=== PATIENT | female | born 2000 | race Caucasian/White ===

== ENCOUNTER 2019-03-19 21:26 | Emergency (ER) | payer OTHER, SELFPAY ==
[2019-03-19 21:59] LABS: #Eosinphils 0.1 thou/uL (0.0-0.7); #Lymphocytes 1.5 thou/uL (1.20-3.40); #Monocytes 0.6 thou/uL (0.11-0.59); #Neutrophils 5.2 thou/uL (1.40-6.50); %Basophils 0.3 % (0.0-1.0); %Eosinophils 1.3 % (0.0-10.0); %Lymphocytes 20.4 % (21.0-51.0); %Monocytes 8.1 % (0.0-10.0); %Neutrophils 69.9 % (42.0-75.0); Hemoglobin 13.2 g/dL (12.0-16.0); Mean Corpuscular HGB CONC 33.9 g/dL (32.0-36.0); Mean Corpuscular Volume 88.6 fL (78.0-98.0); Mean Platelet Volume 7.4 fL (7.4-10.4); Platelet Count 188 thou/uL (130-400); RBC Distribution Width 11.7 % (11.5-14.5); White Blood Cell (WBC) Count 7.4 thou/uL (4.8-10.8)
[2019-03-19 22:20] LABS: ALT (SGPT) 24 U/L (8-55); AST (SGOT) 18 U/L (5-34); Albumin 3.6 g/dL (3.5-5.0); Alkaline Phosphatase 61 U/L (40-150); Anion Gap 11 mmol/L (10-20); BUN (Urea Nitrogen) 8 mg/dL (7.0-18.7); Bilirubin, Total 0.2 mg/dL (0.2-1.2); Calc. Creatinine Clearance 0 mL/min (70-130); Calcium 8.8 mg/dL (7.8-10.44); Carbon Dioxide 22 mmol/L (22-29); Chloride 105 mmol/L (98-107); Estimated GFR-MDRD Greater than 90; Globulin 2.7 g/dL (2.4-3.5); Glucose 81 mg/dL (70-105); Potassium 4.1 mmol/L (3.5-5.1); Protein, Total 6.3 g/dL (6.0-8.3); Sodium 134 mmol/L (136-145)
[2019-03-19 22:52] LABS: Bilirubin Negative (Negative); Blood, Urine Negative (Negative); Clarity Clear (Clear); Glucose, Urine (Dipstick) Normal (Negative); Leukocyte Negative Leu/uL (Negative); Nitrite Negative (Negative); Protein, Urine (Dipstick) Negative (Neg-Trace); Urobilinogen Normal mg/dL (Less than 2)
--- NOTE | 2019-03-20 00:20 | ULT ---
Exam: OB ultrasound HISTORY: 17 week patient. Abdominal pain. TECHNIQUE: Sagittal and transverse imaging of the gravid uterus performed FINDINGS: Single intrauterine gestation, breech presentation heart tones with a rate of 144 bpm Cervical length: 3.95-4.65 cm Posterior placenta. biometry: BPD: 4.05 cm, 18 weeks 2 days Head circumference: 15.06 cm, 18 weeks 1 day Abdominal circumference: 11.64 cm, 17 weeks 3 days Femur length 2.39 cm, 17 weeks 1 day Average age by sonography is 17 weeks 5 days. Estimated delivery date is 08/22/2019 Estimated weight: 194 g survey: Limited evaluation due to early intrauterine gestation. However, there does appear to b e possible left-sided hydronephrosis. IMPRESSION: 1. Single intrauterine gestation with heart tones. Average age by sonography is 17 weeks 5 days 2. Limited survey due to gestational age. However, the possibility of left-sided hydronephrosis is raised. Follow-up imaging in between 18-20 weeks gestation age is recommended.
== END 2019-03-20 00:57 | disposition home or self-care (01) ==
LOC: ERS 21:26
DX: O99.89 Other specified diseases and conditions complicating pregnancy, childbirth and the puerperium (principal); R10.30 Lower abdominal pain, unspecified
CPT/HCPCS: 36415; 76805; 80053; 81003; 84702; 85025; 87086

== ENCOUNTER 2019-06-14 20:33 | Day surgery (SDC) | payer BC, OTHER ==
[2019-06-14] MEDS ORDERED: hydrALAZINE 20 MG/ML VIAL SLOW IVP PRN (21:40)
[2019-06-14 21:54] VITALS: BMI 23.3
[2019-06-14 21:56] VITALS: BP 106/78; TEMP 98.7
--- NOTE | 2019-06-14 22:35 | PDOC.LDHP ---
Labor and Delivery H&P Chief complaint: abdominal pain, decreased movement HPI: Patient is a 19F @ 30.1wks by LMP/7.4wk sono who presents due to decreased movement. She reports that starting around 5pm tonight she started to feel decreased movement, and around 6pm she started to feel left-sided abdominal pain. She could not describe the pain, but just said that it was painful. She denies any loss of fluid or vaginal bleeding. Denies headaches, changes in vision, sob, cp, painful urination. Upon evaluation she is denying any abdominal pain at this time. She is reporting intermittently feeling movement. PNL neg; pap LSIL, HPV pos with repeat in 1 year rec Current complications: other (hx of bv) Past Medical History: medical hx: none sx hx: none Current medications: pre- vitamins Allergies/Adverse Reactions: Allergies Allergy/AdvReac Type Severity Reaction Status Date / Time No Known Allergies Allergy Verified 06/14/19 22:02 Social history: none - Physical Exam Vital signs reviewed and normal: yes General: NAD, resting, breathing through contractions Heart: RRR Lungs: nonlabored breathing Abdomen: NTTP Extremeties: no edema FHT: category 1 [place] contractions every: none - OB Labs HIV: negative RPR: negative 1 hour GCT: negative - Assessment Patient is a 19F @ 30.1wks by LMP/7.5wk U/S here today due to decreased movement #Intrauterine , decreased movement -20min strip reactive, no decels -no contractions visualized on the strip -patient followed by Dr. Bender at [facility] -patient reports that her abdominal pain has ceased and has not returned, likely gas/bm related -labor precautions, decreased movement precautions, reassurance provided -discharge with ER precautions, and f/u with pcp as necessary This patient was evaluated by Dr. Grover before discharge.
== END 2019-06-14 22:50 | disposition home or self-care (01) ==
LOC: L&D/OP 20:33
PROVIDERS: ATTEND Family Medicine
DX: O36.8130 Decreased fetal movements, third trimester, not applicable or unspecified (principal); O99.89 Other specified diseases and conditions complicating pregnancy, childbirth and the puerperium; R10.9 Unspecified abdominal pain; Z3A.30 30 weeks gestation of pregnancy
CPT/HCPCS: 99282

== ENCOUNTER 2019-07-21 14:28 | Day surgery (SDC) | payer OTHER ==
[2019-07-21 14:51] VITALS: BMI 34.1
[2019-07-21] MEDS ORDERED: hydrALAZINE 20 MG/ML VIAL SLOW IVP PRN (16:15)
[2019-07-21 16:35] LABS: Bacteria/HPF None Seen HPF (None Seen); Bilirubin Negative (Negative); Blood, Urine Negative (Negative); Clarity Clear (Clear); Glucose, Urine (Dipstick) Normal (Negative); Leukocyte Negative Leu/uL (Negative); Nitrite Negative (Negative); Protein, Urine (Dipstick) Negative (Neg-Trace); RBC/HPF 0-3 HPF (0-3); Squamous Epithelial 0-3 HPF (0-3); Urobilinogen Normal mg/dL (Less than 2); WBC/HPF 0-3 HPF (0-3)
--- NOTE | 2019-07-21 16:51 | PDOC.LDHP ---
Labor and Delivery H&P Chief complaint: contractions HPI: Patient is a 19F @ 35.3wks by LMP/7.4wk sono who presents due to lower abdominal pain. Patient reports she was recently seen at [facility] and said she did not have UTI. Patient reports lower abdominal pain with movement and also pain under her right ribs with movement as well. She reports intermittent contractions during this time as well. She reports no vaginal discharge, bleeding, or decreased movement. No other complaints. Current gestational age (weeks): 35 (3) Due date: 08/22/19 Dating criteria: last menstrual period Grav: 2 Para: 1 OB History Details: 1 in 2014 Current complications: none Abnormal US findings: No Current medications: pre- vitamins Previous surgical history: none Allergies/Adverse Reactions: Allergies Allergy/AdvReac Type Severity Reaction Status Date / Time No Known Allergies Allergy Verified 06/14/19 22:02 Social history: none - Physical Exam Vital signs reviewed and normal: yes General: NAD Heart: RRR Lungs: CTAB Abdomen: gravid Extremeties: no edema FHT: category 1 [place] contractions every: None seen - Vaginal Exam cm dilated: 1 Effacement: 0% Station: -2 - Assessment 1. IUP - No signs or symptoms of labor at this time - Will check UA for UTI - Will monitor for contractions and activity at this time. - Expect discharge if normal Addendum - Attending - Attending Attestation Date/Time: 07/21/19 [id number] I personally evaluated the patient and discussed the management with Dr. Zhang I agree with the History, Examination, Assessment and Plan documented above with any addition or exceptions noted below. Labor rule out. Nonpainful contractions with pelvic pressure. SVE. Rule out UTI. Radha
--- NOTE | 2019-07-21 17:08 | PDOC.BPN ---
<Be Zhang - Last Filed: 07/21/19 17:08> - Brief Progress Note UA unremarkable. Counseled on signs and symptoms to return. Plan for follow up in clinic with Dr. Castellanos on this upcoming . <Leela Membreno - Last Filed: 07/21/19 23:46> Addendum - Attending - Attending Attestation Date/Time: 07/21/19 3346 I personally evaluated the patient and discussed the management with Dr. Zhang I agree with the History, Examination, Assessment and Plan documented above with any addition or exceptions noted below. Patient not in labor. No signs of infection. Followup next week with PCP. Radha
== END 2019-07-21 17:20 | disposition home health service (06) ==
LOC: L&D/OP 14:28
PROVIDERS: ATTEND Student in an Organized Health Care Education/Training Program
DX: O47.03 False labor before 37 completed weeks of gestation, third trimester (principal); Z3A.35 35 weeks gestation of pregnancy
CPT/HCPCS: 36415; 81003

== ENCOUNTER 2025-08-15 05:28 | Emergency (ER) | payer OTHER, SELFPAY ==
[2025-08-15] MEDS ORDERED: Acetaminophen 500 MG TAB ONE (05:42)
[2025-08-15] MEDS ORDERED: Ibuprofen 200 MG TAB ONE (05:43)
== END 2025-08-15 07:34 | disposition home or self-care (01) ==
LOC: ERS 05:28
DX: S93.402A Sprain of unspecified ligament of left ankle, initial encounter (principal); S73.102A Unspecified sprain of left hip, initial encounter; S60.222A Contusion of left hand, initial encounter; S80.211A Abrasion, right knee, initial encounter; Z23 Encounter for immunization; Z55.6 Problems related to health literacy; X50.1XXA Overexertion from prolonged static or awkward postures, initial encounter
CPT/HCPCS: 90471; 90715